=== PATIENT | female | born 1955 | race Two or more races ===

== ENCOUNTER 2022-10-18 06:10 | Day surgery (SDC) | payer OTHER ==
[~2022-10-18] VITALS: Ht 160 cm; Wt 74.4 kg
[~2022-10-18 06:10] MED LIST: ATACAND32 MG; OMEGA 3 1,0001 EACH PO; TRULIC; XIGDUO XR 10 M1 EACH PO
== END 2022-10-18 19:35 | disposition home or self-care (01) ==
LOC: CIR.AMB 06:10
PROVIDERS: ATTEND Surgery
DX: D05.12 Intraductal carcinoma in situ of left breast (principal); N60.91 Unspecified benign mammary dysplasia of right breast; N60.21 Fibroadenosis of right breast; R59.0 Localized enlarged lymph nodes; N62 Hypertrophy of breast; N64.81 Ptosis of breast; Z20.822 Contact with and (suspected) exposure to COVID-19
CPT/HCPCS: 19301; 38525; 19318; 19281; 19282; A9541; L8699